=== PATIENT | male | born 1965 | race Caucasian/White ===

== ENCOUNTER 2016-05-12 16:05 | Inpatient (IN) | payer OTHER ==
[2016-05-12 17:02] VITALS: BMI 23.8
--- NOTE | 2016-05-12 19:26 | HP ---
CIWA Score - CIWA Score Nausea/Vomitin-Mild Nausea/No Vomiting Muscle Tremors: 4-Moderate,w/Arms Extend Anxiety: 4-Mod. Anxious/Guarded Agitation: 4-Moderately Restless Paroxysmal Sweats: 1-Minimal Palms Moist Orientation: 1-Uncertain about Date Tacttile Disturbances: 0-None Auditory Disturbances: 0-None Visual Disturbances: 0-None Headache: 1-Very Mild CIWA-Ar Total Score: 16 Admission ROS S - HPI Chief Complaint: WITHDRAWAL SX Allergies/Adverse Reactions: Allergies Allergy/AdvReac Type Severity Reaction Status Date / Time No Known Allergies Allergy Verified 05/12/16 19:26 History of Present Illness: 50 YEARS OLD MALE WITH LONG HISTORY OF ALCOHOL, NICOTINE DEPENDENCE, HAD STROKE 2013 LEFT SIDE TRANSIENT WEAKNESS, POSITIVE PPD AND SEIZURE TREATED WITH DILANTIN LAST DOSE 2 YEARS AGO CHRONIC ANKLE EDEMA IS ADMITTED TO DETOX ON METHADONE MAINTENANCE PROGRAM 60 MG DAILY LAST DOSE Exam Limitations: No Limitations - Ebola screening Have you traveled outside of the country in the last 21 days: No Have you had contact with anyone from an Ebola affected area: No Have you been sick,other than usual withdrawal symptoms: No Do you have a fever: No - Review of Systems Constitutional: Chills, Loss of Appetite, Changes in sleep, Unexplained wgt Loss EENT: reports: No Symptoms Reported Respiratory: reports: SOB with Exertion Cardiac: reports: No Symptoms Reported GI: reports: Nausea, Poor Fluid Intake, Abdominal cramping : reports: No Symptoms Reported Musculoskeletal: reports: Back Pain, Joint Pain, Muscle Pain, Neck Pain Integumentary: reports: Rash (INNER UPPER LEGS) Neuro: reports: Seizure, Tremors Endocrine: reports: No Symptoms Reported Hematology: reports: No Symptoms Reported Psychiatric: reports: Judgement Intact, Orientated x3, Depressed Other Systems: Reviewed and Negative Patient History - Patient Medical History Hx Anemia: No Hx Asthma: No Hx Chronic Obstructive Pulmonary Disease (COPD): No Hx Cancer: No Hx Cardiac Disorders: No Hx Congestive Heart Failure: No Hx Hypertension: Yes Hx Hypercholesterolemia: No Hx Pacemaker: No HX Cerebrovascular Accident: No Hx Seizures: Yes Hx Dementia: No Hx Diabetes: No Hx Gastrointestinal Disorders: Yes Hx Liver Disease: No Hx Genitourinary Disorders: No Hx Sexually Transmitted Disorders: No Hx Renal Disease (ESRD): No Hx Thyroid Disease: No Hx Human Immunodeficiency Virus (HIV): No Hx Hepatitis C: No Hx Depression: Yes Hx Suicide Attempt: No Hx Bipolar Disorder: No Hx Schizophrenia: No - Patient Surgical History Past Surgical History: Yes Hx Neurologic Surgery: No Hx Cataract Extraction: No Hx Cardiac Surgery: No Hx Lung Surgery: Yes (RIGHT LUNG CHILDHOOD) Hx Breast Surgery: No Hx Breast Biopsy: No Hx Abdominal Surgery: No Hx Appendectomy: No Hx Cholecystectomy: No Hx Genitourinary Surgery: No Hx Orthopedic Surgery: No Anesthesia Reaction: No - PPD History Previous Implant?: Yes Documented Results: Positive w/proof Implanted On Prior R Admission?: No PPD to be Administered?: No - Smoking Cessation Smoking history: Current every day smoker Have you smoked in the past 12 months: Yes Aproximately how many cigarettes per day: 20 Cigars Per Day: 0 Hx Chewing Tobacco Use: No Initiated information on smoking cessation: Yes 'Breaking Loose' booklet given: 05/12/16 - Substance & Tx. History Hx Alcohol Use: Yes Hx Substance Use: Yes Substance Use Type: Alcohol, Cocaine, Heroin Hx Substance Use Treatment: Yes - Substances Abused Alcohol Route: Oral Frequency: Daily Amount used: 15OZ BEER X 24 Age of first use: 14 Date of Last Use: 05/12/16 Family Disease History - Family Disease History Family Disease History: Heart Disease: Mother (), Other: Father ( ALCOHOLIC), Mother Admission Physical Exam S - Vital Signs Vital Signs: Vital Signs - 24 hr 05/12/16 16:55 Temperature 97.0 F L Pulse Rate 84 Respiratory 20 Rate Blood Pressure 138/71 - Physical General Appearance: Yes: Appropriately Dressed, Moderate Distress, Thin, Tremorous, Irritable, Sweating, Anxious HEENTM: Yes: Hearing grossly Normal, Normal ENT Inspection, Normocephalic, Normal Voice Respiratory: Yes: Chest Non-Tender, Lungs Clear, Normal Breath Sounds, No Respiratory Distress, No Accessory Muscle Use Neck: Yes: Supple, Trachea in good position Breast: Yes: Breasts Symetrical Cardiology: Yes: Regular Rhythm, Regular Rate, S1, S2 Abdominal: Yes: Non Tender, Soft, Increased Bowel Sounds Genitourinary: Yes: Within Normal Limits Back: Yes: Normal Inspection Musculoskeletal: Yes: full range of Motion, Gait Steady, Back pain, Muscle Pain Extremities: Yes: Normal Range of Motion, Non-Tender, Tremors, Swelling (ANKLES + FEET) Neurological: Yes: Alert, Motor Strength 5/5, Normal Response, Depressed Affect Integumentary: Yes: Warm, Rash Lymphatic: Yes: Within Normal Limits - Diagnostic (1) Alcohol dependence with uncomplicated withdrawal Current Visit: Yes Status: Acute (2) Methadone maintenance therapy patient Current Visit: Yes Status: Acute Comment: 60 MG DAILY VERIFICATION PENDING (3) Nicotine dependence Current Visit: Yes Status: Acute Qualifiers: Nicotine product type: cigarettes Substance use status: in withdrawal Qualified Code(s): F17.213 - Nicotine dependence, cigarettes, with withdrawal (4) History of seizures Current Visit: Yes Status: Acute Comment: TREATED WITH DILANTIN LAST DOSE 2 YEARS AGO (5) S/P stroke due to cerebrovascular disease Current Visit: Yes Status: Resolved Comment: LEFT SIDE WEAKNESS (6) GERD (gastroesophageal reflux disease) Current Visit: Yes Status: Acute Qualifiers: Esophagitis presence: without esophagitis Qualified Code(s): K21.9 - Gastro-esophageal reflux disease without esophagitis (7) PPD positive, treated Current Visit: Yes Status: Resolved Comment: NEGATIVE CHEST X RAY 04/16/16 (8) Hypertension Current Visit: Yes Status: Chronic Qualifiers: Hypertension type: other secondary hypertension Qualified Code(s): I15.8 - Other secondary hypertension Comment: TREATED WITH CLONIDINE LAST DOSE 2 YEARS AGO (9) Weight loss Current Visit: Yes Status: Acute Comment: ENSURE (10) Swelling of joint of lower leg Current Visit: Yes Status: Chronic Comment: ELEVATION RESTING Cleared for Admission S - Detox or Rehab [facility] Level of Care: Medically Managed Detox Regimen/Protocol: Librium [facility] Breath Alcohol Content Breath Alcohol Content: 0 Urine Drug Screen - Results Drug Screen Negative: No Urine Drug Screen Results: LIZ-Cocaine, MTD-Methadone
[2016-05-12] MEDS ORDERED: LOPERAMIDE HCL 2 MG CAPSULE PO PRN (19:38)
[2016-05-12] MEDS ORDERED: diphenhydrAMINE HCL 50 MG CAPSULE PO PRN (19:38)
[2016-05-12] MEDS ORDERED: IBUPROFEN 400 MG TABLET (FP) PO PRN (19:38)
[2016-05-12] MEDS ORDERED: MAGNESIUM CITRATE 300 ML BOTTLE PO PRN (19:38)
[2016-05-12] MEDS ORDERED: MAG HYDROX/AL HYDROX/SIMETH 30 ML UNIT-DOSE CUP PO PRN (19:38)
[2016-05-12] MEDS ORDERED: guaiFENesin/D-METHORPHAN HB 10 ML UNIT-DOSE CUPS PO PRN (19:38)
[2016-05-12] MEDS ORDERED: MENTHOL/PHENOL 1 EACH UD MM PRN (19:38)
[2016-05-12] MEDS ORDERED: P-EPHED 60MG/TRIPROLIDI 2.5MG TABLET PO PRN (19:38)
[2016-05-12] MEDS ORDERED: chlordiazePOXIDE HCL 25 MG CAPSULE PO PRN (19:38)
[2016-05-12] MEDS ORDERED: MAGNESIUM HYDROX 2400MG/30ML ORAL SUSPENSION 30 ML CUP PO PRN (19:38)
[2016-05-12] MEDS ORDERED: ACETAMINOPHEN 325 MG TABLET (FP) PO PRN (19:38)
[2016-05-12] MEDS ORDERED: cloNIDine HCL 0.1 MG TABLET PO PRN (19:40)
[2016-05-12] MEDS: RANITIDINE HCL 150 MG TABLET (FP) PO SCH (21:56)
[2016-05-12] MEDS: THIAMINE HCL 100 MG TABLET (FP) PO SCH (21:56)
[2016-05-12] MEDS: chlordiazePOXIDE HCL 25 MG CAPSULE PO SCH (22:00)
[2016-05-12] MEDS: CLOTRIMAZOLE 1% CREAM 15 GM TUBE TP SCH (22:39)
[2016-05-12 23:09] LABS: URINE APPEARANCE CLEAR; URINE BILIRUBIN NEGATIVE (NEGATIVE); URINE BLOOD NEGATIVE (NEGATIVE); URINE COLOR STRAW; URINE GLUCOSE (UA) NEGATIVE (NEGATIVE); URINE KETONE NEGATIVE (NEGATIVE); URINE LEUK ESTERASE NEGATIVE (NEGATIVE); URINE NITRITE NEGATIVE (NEGATIVE); URINE PROTEIN NEGATIVE (NEGATIVE); URINE UROBILINOGEN NEGATIVE E.U./dl (0.2-1.0)
[2016-05-13] MEDS: chlordiazePOXIDE HCL 25 MG CAPSULE PO SCH ×4 (06:15→22:57)
[2016-05-13] MEDS ORDERED: METHADONE HCL 10 MG TABLET PO ONE (08:18)
[2016-05-13] MEDS ORDERED: METHADONE 40 MG, METHADONE 20 MG PO ONE (08:40)
[2016-05-13] MEDS ORDERED: METHADONE HCL 10 MG TABLET ONE (08:56)
[2016-05-13] MEDS ORDERED: METHADONE HCL 40 MG DISPERSABLE TABLET ONE (08:56)
--- NOTE | 2016-05-13 10:19 | EKG ---
Test Reason : Blood Pressure : / mmHG Vent. Rate : 067 BPM Atrial Rate : 067 BPM P-R Int : 160 ms QRS Dur : 092 ms QT Int : 430 ms P-R-T Axes : 073 013 016 degrees QTc Int : 454 ms NORMAL SINUS RHYTHM WITH SINUS ARRHYTHMIA NORMAL ECG NO PREVIOUS ECGS AVAILABLE Confirmed by KJ CHIANG, ARIN ([id number]) on 05/13/2016 10:19:11 AM Referred By: Confirmed By:ARIN UNDERWOOD MD
[2016-05-13 10:25] LABS: ALBUMIN 3.5 g/dl (3.4-5.0); ALK PHOS 89 U/L (45-117); ANION GAP 8 (8-16); BILIRUBIN,TOTAL 0.3 mg/dL (0.2-1.0); CALCIUM 9.2 mg/dL (8.5-10.1); CO2 29 mmol/L (21-32); GLUCOSE,RANDOM 81 mg/dL (74-106); SGOT/AST 18 U/L (15-37); SGPT/ALT 24 U/L (12-78); TOT PROT 7.1 g/dl (6.4-8.2)
[2016-05-13 10:34] LABS: MCH 32.3 pg (25.7-33.7); MCHC 33.8 g/dl (32.0-35.9); MEAN CELL VOLUME 95.6 fl (80-96); MEAN PLT VOLUME 9.3 fl (7.5-11.1); PLATELET COUNT 190 K/MM3 (134-434); RDW 13.4 % (11.9-15.9); WHITE BLOOD COUNT 5.8 K/mm3 (4.0-10.0)
[2016-05-13] MEDS: RANITIDINE HCL 150 MG TABLET (FP) PO SCH ×2 (10:51→22:57)
[2016-05-13] MEDS: PRENATAL VITAMINS W/ FOLIC ACID TABLET (FP) PO SCH (10:51)
[2016-05-13] MEDS: CLOTRIMAZOLE 1% CREAM 15 GM TUBE TP SCH ×2 (10:52→22:56)
--- NOTE | 2016-05-13 10:58 | PN ---
[facility] CIWA - CIWA Score Nausea/Vomitin-No Nausea/No Vomiting Muscle Tremors: 4-Moderate,w/Arms Extend Anxiety: 4-Mod. Anxious/Guarded Agitation: 4-Moderately Restless Paroxysmal Sweats: 1-Minimal Palms Moist Orientation: 0-Oriented Tacttile Disturbances: 3-Moderate Itch/Numb/Burn Auditory Disturbances: 0-None Visual Disturbances: 0-None Headache: 0-None Present CIWA-Ar Total Score: 16 S Progress Note (SOAP) Subjective: ANXIETY,SWEATS,TREMORS,FATIGUE. Objective: 05/13/16 10:57 Vital Signs Temperature 96.8 F L 05/13/16 09:47 Pulse Rate 80 05/13/16 09:47 Respiratory Rate 18 05/13/16 09:47 Blood Pressure 106/67 05/13/16 09:47 O2 Sat by Pulse Oximetry (%) Laboratory Last Values WBC 5.8 K/mm3 (4.0-10.0) 05/13/16 07:00 RBC 4.08 M/mm3 (4.00-5.60) 05/13/16 07:00 Hgb 13.2 GM/dL (11.7-16.9) 05/13/16 07:00 Hct 39.0 % (35.4-49) 05/13/16 07:00 MCV 95.6 fl (80-96) 05/13/16 07:00 MCHC 33.8 g/dl (32.0-35.9) 05/13/16 07:00 RDW 13.4 % (11.9-15.9) 05/13/16 07:00 Plt Count 190 K/MM3 (134-434) 05/13/16 07:00 MPV 9.3 fl (7.5-11.1) 05/13/16 07:00 Sodium 140 mmol/L (136-145) 05/13/16 07:00 Potassium 4.4 mmol/L (3.5-5.1) 05/13/16 07:00 Chloride 103 mmol/L (98-107) 05/13/16 07:00 Carbon Dioxide 29 mmol/L (21-32) 05/13/16 07:00 Anion Gap 8 (8-16) 05/13/16 07:00 BUN 13 mg/dL (7-18) 05/13/16 07:00 Creatinine 1.0 mg/dL (0.7-1.3) 05/13/16 07:00 Creat Clearance w eGFR > 60 (>60) 05/13/16 07:00 Random Glucose 81 mg/dL (74-106) 05/13/16 07:00 Calcium 9.2 mg/dL (8.5-10.1) 05/13/16 07:00 Total Bilirubin 0.3 mg/dL (0.2-1.0) 05/13/16 07:00 AST 18 U/L (15-37) 05/13/16 07:00 ALT 24 U/L (12-78) 05/13/16 07:00 Alkaline Phosphatase 89 U/L (45-117) 05/13/16 07:00 Total Protein 7.1 g/dl (6.4-8.2) 05/13/16 07:00 Albumin 3.5 g/dl (3.4-5.0) 05/13/16 07:00 Urine Color Straw 05/12/16 22:05 Urine Appearance Clear 05/12/16 22:05 Urine pH 7.0 (5.0-8.0) 05/12/16 22:05 Ur Specific [place] 1.003 (1.001-1.035) 05/12/16 22:05 Urine Protein Negative (NEGATIVE) 05/12/16 22:05 Urine Glucose (UA) Negative (NEGATIVE) 05/12/16 22:05 Urine Ketones Negative (NEGATIVE) 05/12/16 22:05 Urine Blood Negative (NEGATIVE) 05/12/16 22:05 Urine Nitrite Negative (NEGATIVE) 05/12/16 22:05 Urine Bilirubin Negative (NEGATIVE) 05/12/16 22:05 Urine Urobilinogen Negative E.U./dl (0.2-1.0) 05/12/16 22:05 Ur Leukocyte Esterase Negative (NEGATIVE) 05/12/16 22:05 Assessment: 05/13/16 10:58 WITHDRAWAL SX Plan: CONTINUE DETOX
--- NOTE | 2016-05-13 13:36 | CONSULT ---
[facility] Psychiatric Consult - Data Date of interview: 05/13/16 Admission source: [facility] Identifying data: First admission to [facility] for this 50 y/o male seeking detox treatment on for heroin and cocaine dependence.Patient is domiciled (lives with common-law ),childless,unemployed and supported on SSI benefits. Substance Abuse History: - Smoking Cessation. Smoking history: Current every day smoker. Have you smoked in the past 12 months: Yes. Aproximately how many cigarettes per day: 20. Cigars Per Day: 0. Hx Chewing Tobacco Use: No. Initiated information on smoking cessation: Yes. 'Breaking Loose' booklet given : 05/12/16. - Substance & Tx. History. Hx Alcohol Use: Yes. Hx Substance Use : Yes. Substance Use Type: Alcohol, Cocaine, Heroin. Hx Substance Use Treatment: Yes. - Substances Abused. Alcohol. Route: Oral. Frequency: Daily. Amount used: 15OZ BEER X 24. Age of first use: 14. Date of Last Use: 05/12/16. Confirmed by patient in this interview. Medical History: Hypertension,GERD,past history of CVA with left-sided weakness and withdrawal-related seizures. Psychiatric History: Patient denies history of psychiatric hospitalizations.Mr Hills is on methadone maintenance (60 mg/day) at the [facility] program in [facility].No reported history of suicide attempts. Physical/Sexual Abuse/Trauma History: Patient denies. Additional Comment: Urine Drug Screen Results: LIZ-Cocaine, MTD-Methadone.Noted. Mental Status Exam - Mental Status Exam Alert and Oriented to: Time, Place, Person Cognitive Function: Good Patient Appearance: Well Groomed Mood: Nervous, Anxious Affect: Mood Congruent Patient Behavior: Fatigued, Appropriate, Cooperative Speech Pattern: Clear, Appropriate Voice Loudness: Normal Thought Process: Goal Oriented Hallucinations: Denies Suicidal Ideation: Denies Homicidal Ideation: Denies Insight/Judgement: Fair Sleep: Fair Muscle strength/Tone: Normal Gait/Station: Normal Psychiatric Findings - Problem List ([place] 1, 2,3) (1) Alcohol dependence with uncomplicated withdrawal Current Visit: Yes Status: Acute (2) Opioid dependence on agonist therapy Current Visit: Yes Status: Acute (3) Cocaine dependence Current Visit: Yes Status: Acute (4) Nicotine dependence Current Visit: Yes Status: Acute Qualifiers: Nicotine product type: cigarettes Substance use status: in withdrawal Qualified Code(s): F17.213 - Nicotine dependence, cigarettes, with withdrawal (5) GERD (gastroesophageal reflux disease) Current Visit: Yes Status: Chronic Qualifiers: Esophagitis presence: without esophagitis Qualified Code(s): K21.9 - Gastro-esophageal reflux disease without esophagitis (6) History of seizures Current Visit: Yes Status: Chronic Comment: TREATED WITH DILANTIN LAST DOSE 2 YEARS AGO (7) Hypertension Current Visit: Yes Status: Chronic Qualifiers: Hypertension type: other secondary hypertension Qualified Code(s): I15.8 - Other secondary hypertension Comment: TREATED WITH CLONIDINE LAST DOSE 2 YEARS AGO (8) PPD positive, treated Current Visit: Yes Status: Resolved Comment: NEGATIVE CHEST X RAY 04/16/16 (9) S/P stroke due to cerebrovascular disease Current Visit: Yes Status: Resolved Comment: LEFT SIDE WEAKNESS - Initial Treatment Plan Initial Treatment Plan: Psychoeducation.Detoxification.Observation.Fall precautions.
[2016-05-13] MEDS: THIAMINE HCL 100 MG TABLET (FP) PO SCH (22:57)
[2016-05-14] MEDS ORDERED: METHADONE HCL 10 MG TABLET ONE (04:38)
[2016-05-14] MEDS ORDERED: METHADONE HCL 40 MG DISPERSABLE TABLET ONE (04:38)
[2016-05-14] MEDS: chlordiazePOXIDE HCL 25 MG CAPSULE PO SCH ×3 (05:43→17:51)
[2016-05-14] MEDS ORDERED: METHADONE HCL 10 MG TABLET PO SCH (06:00)
[2016-05-14] MEDS ORDERED: METHADONE 40 MG, METHADONE 20 MG PO SCH (06:00)
[2016-05-14] MEDS: RANITIDINE HCL 150 MG TABLET (FP) PO SCH (10:49)
[2016-05-14] MEDS: PRENATAL VITAMINS W/ FOLIC ACID TABLET (FP) PO SCH (10:49)
[2016-05-14] MEDS: CLOTRIMAZOLE 1% CREAM 15 GM TUBE TP SCH (10:50)
--- NOTE | 2016-05-14 11:22 | PN ---
[facility] CIWA - CIWA Score Nausea/Vomitin-No Nausea/No Vomiting Muscle Tremors: 4-Moderate,w/Arms Extend Anxiety: 4-Mod. Anxious/Guarded Agitation: 4-Moderately Restless Paroxysmal Sweats: 1-Minimal Palms Moist Orientation: 0-Oriented Tacttile Disturbances: 3-Moderate Itch/Numb/Burn Auditory Disturbances: 0-None Visual Disturbances: 0-None Headache: 0-None Present CIWA-Ar Total Score: 16 S Progress Note (SOAP) Subjective: ANXIETY,TREMORS,SWEATS,SORE THROAT,INTERMITTENT SLEEP Objective: 05/14/16 11:21 Vital Signs Temperature 98.0 F 05/14/16 10:26 Pulse Rate 60 05/14/16 10:26 Respiratory Rate 18 05/14/16 10:26 Blood Pressure 102/65 05/14/16 10:26 O2 Sat by Pulse Oximetry (%) Laboratory Last Values WBC 5.8 K/mm3 (4.0-10.0) 05/13/16 07:00 RBC 4.08 M/mm3 (4.00-5.60) 05/13/16 07:00 Hgb 13.2 GM/dL (11.7-16.9) 05/13/16 07:00 Hct 39.0 % (35.4-49) 05/13/16 07:00 MCV 95.6 fl (80-96) 05/13/16 07:00 MCHC 33.8 g/dl (32.0-35.9) 05/13/16 07:00 RDW 13.4 % (11.9-15.9) 05/13/16 07:00 Plt Count 190 K/MM3 (134-434) 05/13/16 07:00 MPV 9.3 fl (7.5-11.1) 05/13/16 07:00 Sodium 140 mmol/L (136-145) 05/13/16 07:00 Potassium 4.4 mmol/L (3.5-5.1) 05/13/16 07:00 Chloride 103 mmol/L (98-107) 05/13/16 07:00 Carbon Dioxide 29 mmol/L (21-32) 05/13/16 07:00 Anion Gap 8 (8-16) 05/13/16 07:00 BUN 13 mg/dL (7-18) 05/13/16 07:00 Creatinine 1.0 mg/dL (0.7-1.3) 05/13/16 07:00 Creat Clearance w eGFR > 60 (>60) 05/13/16 07:00 Random Glucose 81 mg/dL (74-106) 05/13/16 07:00 Calcium 9.2 mg/dL (8.5-10.1) 05/13/16 07:00 Total Bilirubin 0.3 mg/dL (0.2-1.0) 05/13/16 07:00 AST 18 U/L (15-37) 05/13/16 07:00 ALT 24 U/L (12-78) 05/13/16 07:00 Alkaline Phosphatase 89 U/L (45-117) 05/13/16 07:00 Total Protein 7.1 g/dl (6.4-8.2) 05/13/16 07:00 Albumin 3.5 g/dl (3.4-5.0) 05/13/16 07:00 Urine Color Straw 05/12/16 22:05 Urine Appearance Clear 05/12/16 22:05 Urine pH 7.0 (5.0-8.0) 05/12/16 22:05 Ur Specific [place] 1.003 (1.001-1.035) 05/12/16 22:05 Urine Protein Negative (NEGATIVE) 05/12/16 22:05 Urine Glucose (UA) Negative (NEGATIVE) 05/12/16 22:05 Urine Ketones Negative (NEGATIVE) 05/12/16 22:05 Urine Blood Negative (NEGATIVE) 05/12/16 22:05 Urine Nitrite Negative (NEGATIVE) 05/12/16 22:05 Urine Bilirubin Negative (NEGATIVE) 05/12/16 22:05 Urine Urobilinogen Negative E.U./dl (0.2-1.0) 05/12/16 22:05 Ur Leukocyte Esterase Negative (NEGATIVE) 05/12/16 22:05 RPR Titer Nonreactive (NONREACTIVE) 05/13/16 07:00 THROAT EXAM:NO REDNESS/SWELLING/EXUDATE NOTED Assessment: 05/14/16 11:21 WITHDRAWAL SX Plan: CONTINUE DETOX INCREASE PO FLUIDS
[2016-05-14] MEDS ORDERED: AMOX TR/POT CLAV 875MG/125MG TABLETS (FP) PO ONE (13:45)
[2016-05-14] MEDS ORDERED: NAPROXEN 500 MG TABLET (FP) PO SCH (13:45)
[2016-05-14] MEDS ORDERED: AMOX TR/POT CLAV 875MG/125MG TABLETS (FP) PO SCH (17:30)
[2016-05-14 18:15] VITALS: BP 108/70; PULSE 78; TEMP 98.7
--- NOTE | 2016-05-14 19:41 | DS ---
[facility] Detox Discharge Summary Admission Date: 05/12/16 Discharge Date: 05/14/16 - History Present History: Alcohol Dependence Additional Comments: received nurse call patient wants to sign out face to face with the patient along with ribbon inker discuss consequences of AMA patient states that he have not received 60 mg methadone today and demand to have his daily methadone 60 mg now support provided, patient insists to have his methadone 60 mg "out there" daily Pertinent Past History: gerd hypertension - Physical Exam Results Vital Signs: Vital Signs Temperature 98.7 F 05/14/16 18:14 Pulse Rate 78 05/14/16 18:14 Respiratory Rate 18 05/14/16 18:14 Blood Pressure 108/70 05/14/16 18:14 O2 Sat by Pulse Oximetry (%) Pertinent Admission Physical Exam Findings: withdrawal sx Laboratory Last Values WBC 5.8 K/mm3 (4.0-10.0) 05/13/16 07:00 RBC 4.08 M/mm3 (4.00-5.60) 05/13/16 07:00 Hgb 13.2 GM/dL (11.7-16.9) 05/13/16 07:00 Hct 39.0 % (35.4-49) 05/13/16 07:00 MCV 95.6 fl (80-96) 05/13/16 07:00 MCHC 33.8 g/dl (32.0-35.9) 05/13/16 07:00 RDW 13.4 % (11.9-15.9) 05/13/16 07:00 Plt Count 190 K/MM3 (134-434) 05/13/16 07:00 MPV 9.3 fl (7.5-11.1) 05/13/16 07:00 Sodium 140 mmol/L (136-145) 05/13/16 07:00 Potassium 4.4 mmol/L (3.5-5.1) 05/13/16 07:00 Chloride 103 mmol/L (98-107) 05/13/16 07:00 Carbon Dioxide 29 mmol/L (21-32) 05/13/16 07:00 Anion Gap 8 (8-16) 05/13/16 07:00 BUN 13 mg/dL (7-18) 05/13/16 07:00 Creatinine 1.0 mg/dL (0.7-1.3) 05/13/16 07:00 Creat Clearance w eGFR > 60 (>60) 05/13/16 07:00 Random Glucose 81 mg/dL (74-106) 05/13/16 07:00 Calcium 9.2 mg/dL (8.5-10.1) 05/13/16 07:00 Total Bilirubin 0.3 mg/dL (0.2-1.0) 05/13/16 07:00 AST 18 U/L (15-37) 05/13/16 07:00 ALT 24 U/L (12-78) 05/13/16 07:00 Alkaline Phosphatase 89 U/L (45-117) 05/13/16 07:00 Total Protein 7.1 g/dl (6.4-8.2) 05/13/16 07:00 Albumin 3.5 g/dl (3.4-5.0) 05/13/16 07:00 Urine Color Straw 05/12/16 22:05 Urine Appearance Clear 05/12/16 22:05 Urine pH 7.0 (5.0-8.0) 05/12/16 22:05 Ur Specific [place] 1.003 (1.001-1.035) 05/12/16 22:05 Urine Protein Negative (NEGATIVE) 05/12/16 22:05 Urine Glucose (UA) Negative (NEGATIVE) 05/12/16 22:05 Urine Ketones Negative (NEGATIVE) 05/12/16 22:05 Urine Blood Negative (NEGATIVE) 05/12/16 22:05 Urine Nitrite Negative (NEGATIVE) 05/12/16 22:05 Urine Bilirubin Negative (NEGATIVE) 05/12/16 22:05 Urine Urobilinogen Negative E.U./dl (0.2-1.0) 05/12/16 22:05 Ur Leukocyte Esterase Negative (NEGATIVE) 05/12/16 22:05 RPR Titer Nonreactive (NONREACTIVE) 05/13/16 07:00 lab noted - Treatment Hospital Course: Detox Protocol Followed, Responded well - Medication Discharge Medications: Ambulatory Orders NK [No Known Home Medication] 05/12/16 - Diagnosis (1) Alcohol dependence with uncomplicated withdrawal Current Visit: Yes Status: Acute (2) Methadone maintenance therapy patient Current Visit: Yes Status: Acute (3) Nicotine dependence Current Visit: Yes Status: Acute Qualifiers: Nicotine product type: cigarettes Substance use status: in withdrawal Qualified Code(s): F17.213 - Nicotine dependence, cigarettes, with withdrawal (4) GERD (gastroesophageal reflux disease) Current Visit: Yes Status: Acute Qualifiers: Esophagitis presence: without esophagitis Qualified Code(s): K21.9 - Gastro-esophageal reflux disease without esophagitis (5) Hypertension Current Visit: Yes Status: Acute Qualifiers: Hypertension type: other secondary hypertension Qualified Code(s): I15.8 - Other secondary hypertension (6) Weight loss Current Visit: Yes Status: Acute - AMA Did Patient Leave Against Medical Advice: Yes
[2016-05-14] MEDS ORDERED: chlordiazePOXIDE 5 MG CAPSULE PO SCH (23:00)
[2016-05-15] MEDS ORDERED: chlordiazePOXIDE HCL 10 MG CAPSULE PO SCH (23:00)
== END 2016-05-14 19:22 | disposition left against medical advice (07) | DRG 770 ==
LOC: YASAS 16:05 → Y3N 19:56
PROVIDERS: ADMIT Internal Medicine; ATTEND Internal Medicine
PROC: HZ2ZZZZ Detoxification Services for Substance Abuse Treatment (ICD-10-PCS; principal; 2016-05-14)
DX: F10.230 Alcohol dependence with withdrawal, uncomplicated (principal); F11.20 Opioid dependence, uncomplicated; I15.8 Other secondary hypertension; K21.9 Gastro-esophageal reflux disease without esophagitis; R63.4 Abnormal weight loss; Z68.23 Body mass index [BMI] 23.0-23.9, adult; Z86.69 Personal history of other diseases of the nervous system and sense organs; Z86.73 Personal history of transient ischemic attack (TIA), and cerebral infarction without residual deficits; R76.11 Nonspecific reaction to tuberculin skin test without active tuberculosis
CPT/HCPCS: 36415; 80053; 81003; 85027; 86593; 93005; 93010

== ENCOUNTER 2024-04-27 13:32 | Emergency (ER) | payer BC ==
[2024-04-27 14:11] VITALS: BP 135/75; PULSE 76; RESP 17; TEMP 98.6; BMI 17.1
== END 2024-04-27 16:15 | disposition home or self-care (01) ==
LOC: JER 13:32
DX: M25.511 Pain in right shoulder (principal); M25.531 Pain in right wrist; W01.198A Fall on same level from slipping, tripping and stumbling with subsequent striking against other object, initial encounter
CPT/HCPCS: 70450-TC; 71045-TC-FY; 72125-TC; 73030-TC-RT-FY; 73070-TC-RT-FY; 80305; 80307; 99285-25